=== PATIENT | female | born 1995 | race Caucasian/White ===

== ENCOUNTER 2017-09-02 19:16 | Outpatient (CLI) | payer OTHER ==
[2017-09-02] MEDS: LACTATED RINGER'S 1,000 ML IV (21:36)
[2017-09-02] MEDS: LACTATED RINGER'S 500 ML IV (22:52)
== END 2017-09-02 23:47 | disposition home or self-care (01) ==
LOC: OBT 19:16 → L-D 19:18 → OBT 23:47
DX: O26.613 Liver and biliary tract disorders in pregnancy, third trimester (principal); K83.1 Obstruction of bile duct; Z3A.35 35 weeks gestation of pregnancy
CPT/HCPCS: 36415; 76815; 76818; 96360; 96361

== ENCOUNTER 2017-09-04 16:53 | Outpatient (CLI) | payer OTHER | END 2017-09-04 19:20 | disposition home or self-care (01) | LOC: OBT 16:53 → L-D 17:00 → OBT 19:20 | DX: O26.613 Liver and biliary tract disorders in pregnancy, third trimester (principal); K83.1 Obstruction of bile duct; O41.03X0 Oligohydramnios, third trimester, not applicable or unspecified; Z3A.35 35 weeks gestation of pregnancy | CPT/HCPCS: 76818 ==

== ENCOUNTER 2017-09-09 15:54 | Inpatient (IN) | payer OTHER ==
[2017-09-09] MEDS ORDERED: OXYCODONE/ACETAMINOPHEN (5/325) TAB PO (17:00)
[2017-09-09] MEDS ORDERED: BUTORPHANOL 2 MG INJ IV (17:00)
[2017-09-09] MEDS ORDERED: IBUPROFEN 600 MG TAB PO (17:00)
[2017-09-09] MEDS ORDERED: METHYLERGONOVINE 0.2 MG INJ IM (17:00)
[2017-09-09] MEDS ORDERED: OXYTOCIN 30 UNITS/LR 500 ML IV (17:00)
[2017-09-09] MEDS ORDERED: LIDOCAINE 1% (MPF) 30 ML INJ INJ (17:00)
[2017-09-09] MEDS ORDERED: MISOPROSTOL 200 MCG TAB PR (17:00)
[2017-09-09] MEDS ORDERED: CARBOPROST 250 MCG INJ IM (17:00)
[2017-09-09] MEDS: LACTATED RINGER'S 1,000 ML IV (17:51)
[2017-09-09 17:57] LABS: ADD MAN DIFF? NO
[2017-09-09 18:01] LABS: BASOPHILS % 0.5 % (0.0-2.0); EOSINOPHILS # 0.1 10^3/ul (0.0-0.5); EOSINOPHILS % 1.2 % (0.0-7.0); HEMATOCRIT 32.9 % (37.0-47.0); HEMOGLOBIN 11.2 g/dl (12.0-16.0); LYMPHOCYTES # 1.5 10^3/ul (0.8-2.9); LYMPHOCYTES % 25.7 % (15.0-51.0); MEAN CORPUSCULAR HEMOGLOBIN 29.6 pg (29.0-33.0); MEAN CORPUSCULAR VOLUME 86.8 fl (82.0-101.0); MONOCYTE # 0.5 10^3/ul (0.3-0.9); MONOCYTES % 9.5 % (0.0-11.0); NEUTROPHIL # 3.6 10^3/ul (1.6-7.5); NEUTROPHILS % 62.6 % (39.0-77.0); PLATELET COUNT 251 10^3/UL (140-415); RED BLOOD COUNT 3.79 10^6/ul (4.20-5.40)
[2017-09-09 18:01] LABS: WHITE BLOOD COUNT 5.7 10^3/ul (4.8-10.8)
[2017-09-09] MEDS: DINOPROSTONE 10 MG VAG SUPP VAG (18:14)
[2017-09-09 18:20] LABS: ALANINE AMINOTRANSFERASE 28 IU/L (13-69); ALBUMIN 3.7 g/dl (3.3-4.9); ALKALINE PHOSPHATASE 236 IU/L (42-121); ASPARTATE AMINO TRANSFERASE 22 IU/L (15-46); BILIRUBIN,INDIRECT 0.2 mg/dl (0-1.1); BILIRUBIN,TOTAL 0.2 mg/dl (0.2-1.3); INR 0.86; PROTIME 11.8 Sec (11.9-14.9); PT RATIO 0.9; TOTAL PROTEIN 6.9 g/dl (6.1-8.1)
[2017-09-09 18:21] LABS: PARTIAL THROMBOPLASTIN TIME 24.8 Sec (25.0-35.0)
[2017-09-09 18:22] LABS: ALANINE AMINOTRANSFERASE 28 IU/L (13-69); ALBUMIN 3.6 g/dl (3.3-4.9); ALBUMIN/GLOBULIN RATIO 1.05; ALKALINE PHOSPHATASE 236 IU/L (42-121); ANION GAP 13 (8-16); ASPARTATE AMINO TRANSFERASE 23 IU/L (15-46); BILIRUBIN,INDIRECT 0.2 mg/dl (0-1.1); BILIRUBIN,TOTAL 0.2 mg/dl (0.2-1.3); BLOOD UREA NITROGEN 8 mg/dl (7-20); CALCIUM 9.2 mg/dl (8.4-10.2); CARBON DIOXIDE 20 mmol/L (21-31); CHLORIDE 109 mmol/L (97-110); GLUCOSE 87 mg/dl (70-220); POTASSIUM 4.1 mmol/L (3.5-5.1); SODIUM 138 mmol/L (135-144)
[2017-09-09 18:51] LABS: ADD UMIC YES; UR ASCORBIC ACID NEGATIVE (NEGATIVE); UR BACTERIA FEW /HPF (NONE SEEN); UR BILIRUBIN (Dip) NEGATIVE (NEGATIVE); UR BLOOD (Dip) 1+ mg/dL (NEGATIVE); UR CLARITY CLOUDY (CLEAR); UR COLOR YELLOW (YELLOW); UR GLUCOSE (Dip) NEGATIVE (NEGATIVE); UR KETONES (Dip) NEGATIVE (NEGATIVE); UR LEUKOCYTE ESTERASE (Dip) 3+ Leu/ul (NEGATIVE); UR MUCUS FEW /HPF (NONE SEEN); UR NITRITE (Dip) NEGATIVE (NEGATIVE); UR RBC 1 /HPF (0-5); UR SPECIFIC GRAVITY (Dip) 1.018 (1.003-1.030); UR SQUAMOUS EPITHELIAL CELL MODERATE /HPF (FEW); UR TOTAL PROTEIN (Dip) 1+ mg/dl (NEGATIVE); UR UROBILINOGEN (Dip) NEGATIVE (NEGATIVE); UR WBC 8 /HPF (0-5)
[2017-09-09 18:52] LABS: HEPATITIS B SURFACE ANTIGEN NEGATIVE (NEGATIVE)
[2017-09-09] MEDS ORDERED: CA GLUCONATE (GM) 10% 10ML INJ IV (19:30)
[2017-09-09] MEDS: ACETAMINOPHEN 325 MG TAB PO (19:47)
[2017-09-09] MEDS: MAGNESIUM SULFATE 4 GM/100 ML 100 ML IV (19:55)
[2017-09-09] MEDS: MAGNESIUM SULFATE 20 GM/500 ML 500 ML IV (20:24)
[2017-09-09] MEDS: URSODIOL 300 MG CAP PO (21:07)
[2017-09-10 03:45] LABS: MAGNESIUM 5.6 mg/dl (1.7-2.5)
[2017-09-10] MEDS: LACTATED RINGER'S 1,000 ML IV ×2 (04:14→07:01)
[2017-09-10] MEDS: MAGNESIUM SULFATE 20 GM/500 ML 500 ML IV ×2 (06:43→15:54)
[2017-09-10] MEDS ORDERED: FENTAnyl 2MCG/ML-ROPIV 0.2% 100 ML (07:22)
[2017-09-10] MEDS ORDERED: ONDANSETRON 4 MG INJ IV ×2 (07:30→17:30)
[2017-09-10] MEDS ORDERED: NALOXONE (0.4 MG/ML) INJ IV (07:30)
[2017-09-10] MEDS ORDERED: DIPHENHYDRAMINE 50 MG INJ IV (07:30)
[2017-09-10] MEDS ORDERED: FENTAnyl 2MCG/ML-ROPIV 0.2% 100 ML BAG EPI (07:30)
[2017-09-10 07:33] LABS: MAGNESIUM 5.8 mg/dl (1.7-2.5)
[2017-09-10] MEDS: URSODIOL 300 MG CAP PO ×2 (09:19→13:47)
[2017-09-10] MEDS: OXYTOCIN 30 UNITS/LR 500 ML IV ×4 (10:41→20:59)
[2017-09-10 12:57] LABS: MAGNESIUM 6.3 mg/dl (1.7-2.5)
[2017-09-10] MEDS ORDERED: DIBUCAINE 1% 30 GM OINT PR (17:30)
[2017-09-10] MEDS ORDERED: HYDROCODONE/APAP (5/325) TAB PO ×2 (17:30)
[2017-09-10] MEDS ORDERED: ACETAMINOPHEN 325 MG TAB PO (17:30)
[2017-09-10] MEDS ORDERED: OXYCODONE/ASPIRIN (4.88/325) TAB PO ×2 (17:30)
[2017-09-10] MEDS: IBUPROFEN 600 MG TAB PO (18:28)
[2017-09-10 18:29] LABS: MAGNESIUM 6.2 mg/dl (1.7-2.5)
[2017-09-10] MEDS: LANOLIN 7 GM TUBE TOP (18:29)
[2017-09-10] MEDS: WITCH HAZEL/GLYCERIN PAD PR (18:31)
[2017-09-10] MEDS: SENNA/DOCUSATE NA (8.6MG/50MG) TAB PO (20:56)
[2017-09-10 21:57] LABS: RAPID PLASMA REAGIN NONREACTIVE (NR)
[2017-09-11] MEDS: IBUPROFEN 600 MG TAB PO ×4 (00:25→17:42)
[2017-09-11 01:06] LABS: MAGNESIUM 6.7 mg/dl (1.7-2.5)
[2017-09-11] MEDS: MAGNESIUM SULFATE 20 GM/500 ML 500 ML IV ×2 (02:01→11:29)
[2017-09-11] MEDS: LACTATED RINGER'S 1,000 ML IV ×2 (07:25→08:41)
[2017-09-11] MEDS: SENNA/DOCUSATE NA (8.6MG/50MG) TAB PO ×2 (08:40→21:20)
[2017-09-11 09:01] LABS: ADD MAN DIFF? NO
[2017-09-11 09:04] LABS: BASOPHILS % 0.3 % (0.0-2.0); EOSINOPHILS # 0.1 10^3/ul (0.0-0.5); EOSINOPHILS % 0.7 % (0.0-7.0); HEMATOCRIT 30.6 % (37.0-47.0); HEMOGLOBIN 10.5 g/dl (12.0-16.0); LYMPHOCYTES # 1.4 10^3/ul (0.8-2.9); LYMPHOCYTES % 15.6 % (15.0-51.0); MEAN CORPUSCULAR HEMOGLOBIN 29.7 pg (29.0-33.0); MEAN CORPUSCULAR HGB CONC 34.3 g/dl (32.0-37.0); MEAN CORPUSCULAR VOLUME 86.7 fl (82.0-101.0); MEAN PLATELET VOLUME 10.4 fl (7.4-10.4); MONOCYTE # 0.5 10^3/ul (0.3-0.9); NEUTROPHIL # 6.7 10^3/ul (1.6-7.5); NEUTROPHILS % 77.2 % (39.0-77.0); PLATELET COUNT 204 10^3/UL (140-415); RED BLOOD COUNT 3.53 10^6/ul (4.20-5.40); RED CELL DISTRIBUTION WIDTH 12.9 % (11.5-14.5)
[2017-09-11 09:04] LABS: WHITE BLOOD COUNT 8.7 10^3/ul (4.8-10.8)
[2017-09-11 09:27] LABS: MAGNESIUM 6.9 mg/dl (1.7-2.5)
[2017-09-11 12:51] LABS: MAGNESIUM 6.6 mg/dl (1.7-2.5)
[2017-09-11] MEDS: LANOLIN 7 GM TUBE TOP (16:23)
[2017-09-11] MEDS: BENZOCAINE 20% 56 ML SPRAY TOP (16:23)
[2017-09-11] MEDS: LABETALOL 200 MG TAB PO (21:20)
[2017-09-12] MEDS: IBUPROFEN 600 MG TAB PO ×4 (00:17→18:06)
[2017-09-12] MEDS: MEASLES,MUMPS,RUBELLA VACCINE INJ SC* (09:00)
[2017-09-12] MEDS: LABETALOL 200 MG TAB PO (09:00)
[2017-09-12] MEDS: SENNA/DOCUSATE NA (8.6MG/50MG) TAB PO (10:00)
== END 2017-09-12 19:00 | disposition home or self-care (01) | DRG 775 ==
LOC: L-D 15:54 → PP1 09-10 16:54
PROC: 3E0P7VZ Introduction of Hormone into Female Reproductive, Via Natural or Artificial Opening (ICD-10-PCS; 2017-09-09 16:00)
DX: O26.62 Liver and biliary tract disorders in childbirth (principal); K83.1 Obstruction of bile duct; O70.0 First degree perineal laceration during delivery; Z3A.36 36 weeks gestation of pregnancy; Z37.0 Single live birth
CPT/HCPCS: 62319; 76815; 76818; 80053; 80076; 81001; 83735; 84560; 85025; 85610; 85730; 86592; 86850; 86900; 86901; 87340